=== PATIENT | female | born 1955 | race Caucasian/White ===

== ENCOUNTER 2018-02-05 13:11 | Emergency (ER) ==
[2018-02-05 13:21] VITALS: BP 153/78; TEMP 97.8; BMI 32.7
--- NOTE | 2018-02-05 13:38 | ED.PDOC ---
General ED Provider: Dr. HAZEL HU Chief Complaint: Chest Pain Stated Complaint: Chest pain Time Seen by Physician: 13:35 Mode of Arrival: Walk-In Information Source: Patient Primary Care Provider: ANNAMARIE BARBOSA Nursing and Triage Documentation Reviewed and Agree: Yes Does patient meet sepsis criteria?: No System Inflammatory Response Syndrome: Not Applicable Sepsis Protocol: For patient's 13 years and over: Temp is 96.8 and below OR 101 and greater Pulse >90 BPM Resp >20/minute Acutely Altered Mental Status Are patient's symptoms suggestive of a new infection, such as: -Pneumonia -Skin, Soft Tissue -Endocarditis -UTI -Bone, Joint Infection -Implantable Device -Acute Abdominal Infection -Wound Infection -Meningitis -Blood Stream Catheter Infection -Unknown Review of Systems - Review Of Systems Constitutional: Reports: No symptoms Respiratory: Reports: No symptoms, Stridor. Denies: Cough, Orthopnea, Short of air Cardiac: Reports: Chest pain (including L jaw) GI: Reports: No symptoms : Reports: No symptoms Musculoskeletal: Reports: Back pain Skin: Reports: No symptoms Neurological: Reports: No symptoms All Other Systems: Reviewed and Negative Past Medical History - Past Medical History Previously Healthy: Yes Endocrine: Reports: None Cardiovascular: Reports: None Respiratory: Reports: None Hematological: Reports: None Gastrointestinal: Reports: None Genitourinary: Reports: None Neuro/Psych: Reports: None Musculoskeletal: Reports: None Cancer: Reports: None Last Menstrual Period: 10 years ago - Surgical History General Surgical History: Reports: None - Family History Family History: Reports: None - Social History Smoking Status: Never smoker Hx Substance Use: No Alcohol Screening: None - Immunizations Tetanus Shot up to Date: Yes Physical Exam - Physical Exam Appearance: Well-appearing Pain Distress: Mild Eyes: REZA, EOMI ENT: Nose normal, Oropharynx normal Neck: Supple Respiratory: Airway patent, Breath sounds clear, Breath sounds equal, Respirations nonlabored Cardiovascular: RRR, Pulses normal GI/: Soft, Nontender, No masses Musculoskeletal: Normal strength, ROM intact Skin: Warm, Dry, Normal color Neurological: Sensation intact, Motor intact, Alert, Oriented Psychiatric: Affect appropriate, Mood appropriate Interpretation - Radiology Interpretation Radiology Interpretation By: Radiologist Radiology Results: Negative Exam Interpreted: Portable CXR - EKG Interpretation Time of EKG #1: 13:35 Rate: Normal Rhythm: Sinus Ectopy: None Kenef[place]: NL ST Segment: Normal Interpretation: No acute changes Physician Notification - Case Discussed Physician Notified: Dr Barbosa Time of Notification: 16:40 (Evolved into transfer to [facility]) Critical Care Note - Critical Care Note Total Time (mins): 35 Comments: Cardiac workup, lab evaluation, CXR, EKG, discussions with primary care provider and transfer line. Course - Course Hematology/Chemistry: 02/05/18 13:35 02/05/18 13:35 Orders, Labs, Meds: Lab Review 02/05/18 02/05/18 02/05/18 13:35 13:35 13:35 WBC 6.07 RBC 4.31 Hgb 13.3 Hct 38.2 MCV 88.6 MCH 30.9 MCHC 34.8 RDW Coeff of Tavo 13.0 Plt Count 168 Immature Gran % (Auto) 0.3 Neut % (Auto) 64.8 Lymph % (Auto) 25.4 [place] % (Auto) 7.4 Eos % (Auto) 1.6 Baso % (Auto) 0.5 Immature Gran # (Auto) 0.0 Neut # (Auto) 3.9 Lymph # (Auto) 1.5 [place] # (Auto) 0.5 Eos # (Auto) 0.1 Baso # (Auto) 0.0 D-Dimer (Manual) 542.82 Sodium 140.4 Potassium 3.97 Chloride 105.0 Carbon Dioxide 29.7 Anion Gap 9.67 BUN 11.2 Creatinine 1.07 Estimated GFR (MDRD) 52.00 BUN/Creatinine Ratio 10.46 Glucose 91.2 Calcium 9.60 Total Bilirubin 0.46 AST 40.7 H ALT 30.6 Alkaline Phosphatase 70.9 Total Creatine Kinase 88.3 Troponin I < 0.012 Total Protein 7.53 Albumin 4.39 Globulin 3.14 Albumin/Globulin Ratio 1.39 Lipase 77.3 Orders Category Date Time Status EKG-(ED ONLY) Stat CARDIO 02/05/18 13:25 Completed CBC W/ AUTO DIFF Stat LAB 02/05/18 13:35 Completed COMPREHENSIVE METABOLIC PANEL Stat LAB 02/05/18 13:35 Completed CREATINE KINASE Stat LAB 02/05/18 13:35 Completed D-DIMER Stat LAB 02/05/18 13:35 Completed LIPASE Stat LAB 02/05/18 13:35 Completed TROPONIN I Stat LAB 02/05/18 13:35 Completed CHEST, 1V AP ONLY Stat RADS 02/05/18 13:24 Completed Vital Signs: Temp Pulse Resp BP Pulse Ox 02/05/18 13:11 97.8 F 80 16 153/78 H 98 YAW Risk Score YAW Risk Score: Risk Score Odds of by 30D 0 0.1 (0.1-0.2) 1 0.3 (0.2-0.3) 2 0.4 (0.3-0.5) 3 0.7 (0.6-0.9) 4 1.2 (1.0-1.5) 5 2.2 (1.9-2.6) 6 3.0 (2.5-3.6) 7 4.8 (3.8-6.1) Departure - Departure Time of Disposition: 17:15 Disposition: TSF SHORT-TRM HOSP Discharge Problem: Chest pain Qualifiers: Chest pain type: unspecified Qualified Code(s): R07.9 - Chest pain, unspecified Instructions: Chest Pain (ED) Condition: Stable Pt referred to PMD for follow-up: Yes (Follow up with primary care on discharge) IPMP verified?: No (Not indicated) Allergies/Adverse Reactions: Allergies doxycycline [From Vibramycin] Adverse Reaction (Verified 02/21/17 18:20) Home Medications: Ambulatory Orders Aspirin [Aspirin EC] 81 mg PO DAILYWM 03/15/16 Atenolol [Tenormin] 25 mg PO BID 03/15/16 Calcium Citrate/Vitamin D3 [Calcium Citrate +Vit D3 Tablet] 1 each PO BID Cyanocobalamin (Vitamin B-12) [Vitamin B12] 2,500 mcg PO DAILY 03/15/16 Multivit-Min/Iron/Folic/Lutein [Centrum Silver Women Tablet] 1 each PO DAILY Diphenoxylate HCl/Atropine [Lomotil 2.5-0.025 mg Tablet] 1 each PO TID PRN #15 tablet 02/21/17
--- NOTE | 2018-02-05 14:24 | DI ---
EXAMINATION: AP chest radiograph. HISTORY: Chest pain COMPARISON: None available. FINDINGS: No focal consolidation, pleural effusion or pneumothorax is identified. 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 The cardiomediastinal silhouette is within normal limits. IMPRESSION: No acute cardiopulmonary findings.
== END 2018-02-05 17:26 | disposition short-term general hospital (02) ==
LOC: ED 13:11
DX: R07.9 Chest pain, unspecified (principal); Z79.899 Other long term (current) drug therapy; M54.9 Dorsalgia, unspecified; R10.13 Epigastric pain
CPT/HCPCS: 36415; 80053; 82550; 83690; 84484; 85025; 85379; 93005; 93010; 99285